=== PATIENT | male | born 1980 | race Caucasian/White ===

== ENCOUNTER 2023-03-09 05:59 | Emergency (ER) | payer OTHER ==
[~2023-03-09] VITALS: Ht 175.2 cm; Wt 93.0 kg
[2023-03-09] MEDS ORDERED: VERAPAMIL HCL120 M2 PO (06:15)
[2023-03-09] MEDS ORDERED: SERTRALINE HYDR50 MG PO (06:15)
[2023-03-09 06:46] LABS: BASO # 0.1 10*3/uL (0.0-0.1); BASO % 0.6 % (0.0-1.0); EOS # 0.1 10*3/uL (0.0-0.4); EOS % 1.4 % (1.0-4.0); HEMATOCRIT 46.9 % (42.0-52.0); LYMPH % 22.1 % (27.0-41.0); MEAN CELL VOLUME 86.9 fl (80.0-94.0); MEAN CORPUSCULAR HGB 29.4 pg (27.0-31.0); MEAN CORPUSCULAR HGB CONC 33.9 g/dl (33.0-37.0); MEAN PLATELET VOLUME 10.4 fl (9.6-12.3); MONO # 0.8 10*3/uL (0.1-1.0); MONO % 8.5 % (3.0-9.0); NEUT # 6.1 10*3/uL (2.3-7.9); NEUT % 67.2 % (47.0-73.0); PLATELET COUNT AUTOMATED 403 10*3/uL (130-400); RED CELL DISTRI WIDTH 12.9 % (0-14.5)
[2023-03-09 06:57] LABS: ACT PARTIAL THROMBO TIME 32.7 SECONDS (20.0-32.1)
[2023-03-09 07:01] LABS: ALKALINE PHOSPHATASE 87 U/L (46-116); BUN 14 mg/dl (9-23); CHLORIDE 104 mmol/L (98-107); LIPASE 30 U/L (12-53); POTASSIUM 3.9 mmol/L (3.4-5.1); SGPT/ALT 27 U/L (10-49); TOTAL PROTEIN 8.2 gm/dL (6.0-8.0)
[2023-03-09 07:18] LABS: BILIRUBIN Negative (Negative); BLOOD 3+ (Negative); CLARITY Turbid (Clear); COLOR Orange (Yellow); GLUCOSE Negative (Negative); KETONE Trace (Negative); LEUKO ESTERASE Trace (Negative); NITRITE Negative (Negative); PH 5.5 (4.5-8.0); SPECIFIC GRAVITY >= 1.030 (1.001-1.030)
[2023-03-09] MEDS ORDERED: PERCOCET 5-3251 EACH PO (08:00)
[2023-03-09] MEDS ORDERED: FLOMAX0.4 MG PO (08:00)
[2023-03-09] MEDS ORDERED: ONDANSETRON4 MG SL (08:00)
[2023-03-09 08:09] LABS: BACTERIA 3+; CALCIUM OXALATE CRYSTALS 3+; MUCOUS 2+; RBC TNTC rbc/hpf (0-2)
== END 2023-03-09 08:37 | disposition home or self-care (01) ==
LOC: ED 05:59
PROVIDERS: Internal Medicine
DX: N20.0 Calculus of kidney (principal); Z87.891 Personal history of nicotine dependence

== ENCOUNTER 2024-09-08 16:43 | Emergency (ER) | payer OTHER ==
[~2024-09-08] VITALS: Wt 95.3 kg
[~2024-09-08 16:43] MED LIST: FLOMAX0.4 MG PO; ONDANSETRON4 MG SL; PERCOCET 5-3251 EACH PO; SERTRALINE HYDR50 MG PO; VERAPAMIL HCL120 M2 PO
[2024-09-08] MEDS ORDERED: Ketorolac Tromethamine 15 MG/ML VIAL IV ONE (17:45)
[2024-09-08] MEDS ORDERED: Ondansetron Hydrochloride 4 MG/2 ML VIAL IV ONE (17:45)
[2024-09-08] MEDS ORDERED: SODIUM CHLORIDE 0.9% 1,000 ML IV ONE (17:45)
[2024-09-08] MEDS ORDERED: MORPHINE Sulfate 2 MG/ML SYR IV ONE (17:45)
[2024-09-08 18:01] LABS: BASO # 0.1 10*3/uL (0.0-0.1); BASO % 0.4 % (0.0-1.0); EOS % 0.1 % (1.0-4.0); HEMATOCRIT 44.6 % (42.0-52.0); MEAN CELL VOLUME 89.7 fl (80.0-94.0); MEAN CORPUSCULAR HGB 29.4 pg (27.0-31.0); MEAN CORPUSCULAR HGB CONC 32.7 g/dl (33.0-37.0); MEAN PLATELET VOLUME 10.2 fl (9.6-12.3); MONO # 0.4 10*3/uL (0.1-1.0); NEUT # 12.4 10*3/uL (2.3-7.9); NEUT % 87.6 % (47.0-73.0); PLATELET COUNT AUTOMATED 384 10*3/uL (130-400); RED BLOOD COUNT 4.97 10*6/uL (4.50-5.90); RED CELL DISTRI WIDTH 13.2 % (0-14.5); WHITE BLOOD COUNT 14.2 10*3/uL (4.8-10.8)
[2024-09-08 18:22] LABS: BUN 16 mg/dl (9-23); CHLORIDE 104 mmol/L (98-107); POTASSIUM 4.5 mmol/L (3.4-5.1)
[2024-09-08] MEDS ORDERED: Ondansetron4 MG PO (18:45)
[2024-09-08] MEDS ORDERED: SEPTDS PO (18:45)
== END 2024-09-08 19:19 | disposition home or self-care (01) ==
LOC: ED 16:43
PROVIDERS: Emergency Medicine
DX: N13.2 Hydronephrosis with renal and ureteral calculous obstruction (principal); R11.2 Nausea with vomiting, unspecified; Z98.890 Other specified postprocedural states